=== PATIENT | male | born 1995 | race Caucasian/White ===

== ENCOUNTER → 2017-11-08 | Outpatient (CLI) | payer BC, OTHER | LOC: ULTRA 10:52 | DX: E01.0 Iodine-deficiency related diffuse (endemic) goiter (principal); R06.00 Dyspnea, unspecified ==

== ENCOUNTER 2021-02-20 13:04 | Emergency (ER) | payer BC, OTHER ==
[~2021-02-20] VITALS: Ht 190.5 cm; Wt 68.0 kg
[2021-02-20 13:13] VITALS: BP 120/74
[2021-02-20] MEDS ORDERED: CEPHALEXIN500 MG PO (15:30)
== END 2021-02-20 15:55 | disposition home or self-care (01) ==
LOC: ER 13:04
DX: S71.111A Laceration without foreign body, right thigh, initial encounter (principal); F32.9 Major depressive disorder, single episode, unspecified; F41.9 Anxiety disorder, unspecified; X78.1XXA Intentional self-harm by knife, initial encounter; Y93.89 Activity, other specified; Y92.89 Other specified places as the place of occurrence of the external cause; Y99.8 Other external cause status